=== PATIENT | female | born 1970 | race Two or more races ===

== ENCOUNTER 2018-07-21 11:27 | Outpatient (CLI) | payer OTHER | END 2018-07-21 13:37 | disposition home or self-care (01) | LOC: RAD 11:27 | DX: R07.89 Other chest pain (principal) ==

== ENCOUNTER 2019-05-08 09:00 | Outpatient (CLI) | payer OTHER | END 2019-05-08 12:49 | disposition home or self-care (01) | LOC: MAMO-SONO 09:00 | DX: Z12.31 Encounter for screening mammogram for malignant neoplasm of breast (principal); Z87.898 Personal history of other specified conditions ==

== ENCOUNTER 2020-05-29 07:11 | Outpatient (CLI) | payer OTHER | END 2020-05-29 07:43 | disposition home or self-care (01) | LOC: RAD 07:11 | PROVIDERS: ATTEND Pathology Anatomic Pathology & Clinical Pathology | DX: Z11.1 Encounter for screening for respiratory tuberculosis (principal) ==

== ENCOUNTER → 2020-05-29 | Outpatient (CLI) | payer OTHER | END | disposition home or self-care (01) | LOC: PPH VACUNA | DX: Z23 Encounter for immunization (principal) ==

== ENCOUNTER 2021-02-27 08:00 | Outpatient (CLI) | payer OTHER | END 2021-02-27 08:30 | disposition home or self-care (01) | LOC: PPH VACUNA 08:00 | PROVIDERS: ATTEND Emergency Medicine Pediatric Emergency Medicine | DX: Z23 Encounter for immunization (principal) ==

== ENCOUNTER 2021-04-28 09:00 | Outpatient (CLI) | payer OTHER | END 2021-04-28 09:15 | disposition home or self-care (01) | LOC: PPH VACUNA 09:00 | PROVIDERS: ATTEND Emergency Medicine Pediatric Emergency Medicine | DX: Z23 Encounter for immunization (principal) ==

== ENCOUNTER 2021-05-13 09:18 | Outpatient (CLI) | payer OTHER | END 2021-05-13 09:23 | disposition home or self-care (01) | LOC: RAD 09:18 | PROVIDERS: ATTEND Pathology Anatomic Pathology & Clinical Pathology | DX: R07.89 Other chest pain (principal) ==

== ENCOUNTER 2021-10-21 14:36 | Outpatient (CLI) | payer OTHER | END 2021-10-21 14:55 | disposition home or self-care (01) | LOC: TOM 14:36 | PROVIDERS: ATTEND Orthopaedic Surgery | DX: S82.124A Nondisplaced fracture of lateral condyle of right tibia, initial encounter for closed fracture (principal) ==

== ENCOUNTER 2021-10-28 07:06 | Outpatient (CLI) | payer OTHER ==
[~2021-10-28 07:06] MED LIST: LOTREL 5-10 MG1 CAP PO
[2021-10-28] MEDS ORDERED: ELIQUIS2.5 MG PO (18:43)
[2021-10-28] MEDS ORDERED: PERCOCET 5-3251 EACH PO (18:43)
[2021-10-28] MEDS ORDERED: DUI500 PO (18:43)
== END 2021-10-28 07:09 | disposition home or self-care (01) ==
LOC: LAB 07:06
DX: B34.9 Viral infection, unspecified (principal); Z20.822 Contact with and (suspected) exposure to COVID-19

== ENCOUNTER 2021-10-28 07:21 | Day surgery (SDC) | payer OTHER ==
[2021-10-28] MEDS ORDERED: PERCOCET 5-3251 EACH PO (18:43)
[2021-10-28] MEDS ORDERED: DUI500 PO (18:43)
[2021-10-28] MEDS ORDERED: ELIQUIS2.5 MG PO (18:43)
== END 2021-10-28 21:10 | disposition home or self-care (01) ==
LOC: CIR.AMB 07:21
PROVIDERS: ATTEND Orthopaedic Surgery
DX: S82.121A Displaced fracture of lateral condyle of right tibia, initial encounter for closed fracture (principal); I10 Essential (primary) hypertension; E66.9 Obesity, unspecified; M25.061 Hemarthrosis, right knee; S80.01XA Contusion of right knee, initial encounter; Z20.822 Contact with and (suspected) exposure to COVID-19; K21.9 Gastro-esophageal reflux disease without esophagitis; Z87.891 Personal history of nicotine dependence
CPT/HCPCS: 20902; 27535; 29358; L8699

== ENCOUNTER 2022-10-01 11:57 | Outpatient (CLI) | payer OTHER ==
[~2022-10-01 11:57] MED LIST changes: +DUI500 PO; +ELIQUIS2.5 MG PO; +PERCOCET 5-3251 EACH PO
== END 2022-10-01 11:59 | disposition home or self-care (01) ==
LOC: MAMO-SONO 11:57
PROVIDERS: ATTEND Pathology Anatomic Pathology & Clinical Pathology
DX: Z12.31 Encounter for screening mammogram for malignant neoplasm of breast (principal)

== ENCOUNTER 2023-01-20 19:29 | Inpatient (IN) | payer OTHER ==
[~2023-01-20] VITALS: Ht 160 cm; Wt 86.2 kg
[2023-01-25] MEDS ORDERED: ELIQUIS2.5 MG PO (07:32)
[2023-01-25] MEDS ORDERED: PERCOCET 5-3251 EACH PO (07:32)
[2023-01-25] MEDS ORDERED: DUI500 PO (07:32)
[2023-01-27] MEDS ORDERED: PERCOCET 5-3251 EACH PO (08:38)
[2023-01-27] MEDS ORDERED: ELIQUIS2.5 MG PO (08:38)
== END 2023-01-27 14:22 | disposition home or self-care (01) | DRG 481 ==
LOC: ER 19:29 → SURG 22:21 → SEC-K 22:21 → O/R 01-21 08:52 → SEC-K 01-21 08:53 → O/R 01-21 09:11 → SEC-K 01-21 09:12 → SURG 01-21 11:46
PROVIDERS: Nurse Practitioner Family; Orthopaedic Surgery; ADMIT Internal Medicine; ATTEND Internal Medicine
PROC: BQ2RZZZ Computerized Tomography (CT Scan) of Right Lower Extremity (ICD-10-PCS; 2023-01-21)
PROC: 3E0F7SF Introduction of Other Gas into Respiratory Tract, Via Natural or Artificial Opening (ICD-10-PCS; 2023-01-22)
PROC: 0QSB04Z Reposition Right Lower Femur with Internal Fixation Device, Open Approach (ICD-10-PCS; principal; 2023-01-22 18:00)
PROC: B54DZZZ Ultrasonography of Bilateral Lower Extremity Veins (ICD-10-PCS; 2023-01-26)
PROC: 30233N1 Transfusion of Nonautologous Red Blood Cells into Peripheral Vein, Percutaneous Approach (ICD-10-PCS; 2023-01-26)
DX: S72.451A Displaced supracondylar fracture without intracondylar extension of lower end of right femur, initial encounter for closed fracture (principal); D62 Acute posthemorrhagic anemia; L76.32 Postprocedural hematoma of skin and subcutaneous tissue following other procedure; M87.9 Osteonecrosis, unspecified; R50.82 Postprocedural fever; I10 Essential (primary) hypertension; W18.2XXA Fall in (into) shower or empty bathtub, initial encounter; Y93.E8 Activity, other personal hygiene; Y92.59 Other trade areas as the place of occurrence of the external cause; Y99.8 Other external cause status

== ENCOUNTER 2023-11-24 07:48 | Outpatient (CLI) | payer OTHER | END 2023-11-24 09:04 | disposition home or self-care (01) | LOC: MAMO-SONO 07:48 | PROVIDERS: ATTEND Obstetrics & Gynecology Obstetrics | DX: N64.4 Mastodynia (principal) ==

== ENCOUNTER 2024-12-26 14:15 | Outpatient (CLI) | payer OTHER | END 2024-12-26 14:20 | disposition home or self-care (01) | LOC: MAMO-SONO 14:15 | PROVIDERS: ATTEND Pathology Anatomic Pathology | DX: Z12.31 Encounter for screening mammogram for malignant neoplasm of breast (principal) ==